=== PATIENT | male | born 1955 | race Caucasian/White ===

== ENCOUNTER 2016-10-10 23:40 | Emergency (ER) | payer BC ==
[~2016-10-10 23:40] MED LIST: ASAB PO; CARDCD180 PO; COZ50 PO; EFFIENT10 PO; FISH-EPA1000 MG PO; FLECAINIDE50 MG PO; FLEX PO; FLONASE NAS; IMDUR30 PO; KLOR-CON M2020 MEQ PO; LIBRAX PO; LIPITOR40 PO; MAGOX4 PO; MOBIC7.5 PO; NEXIUM40 PO; NITROSTAT0.4 MG SL; NORCO1 TA1 PO; NORCO1 TA2 PO; NORCO1 TAB PO; NORV25 PO; NORV5 PO; NTG150 SL; PEP20 PO; PRAVAC PO; TESTOST ENA200 MG/ML IM; V2 PO; VITAMIN D31000 UNIT PO; VITAMIN D400 UNI1 PO; ZOCOR20 PO
[2016-10-11 04:08] LABS: BASOPHILS 0.4 %; BASOPHILS ABSOLUTE 0.03 10/3/uL (0.0-0.16); EOSINOPHILS 1.7 %; EOSINOPHILS ABSOLUTE 0.14 10/3/uL (0.0-0.53); ER CBC TAT 0 Hrs 01 Mins; HEMOGLOBIN 14.1 g/dL (13.6-17.8); IMMATURE GRANULOCYTES 1.7 %; IMMATURE GRANULOCYTES ABSOLUTE 0.14 10/3/uL (0.0-0.11); LYMPHOCYTES 21.8 %; LYMPHOCYTES ABSOLUTE 1.78 10/3/uL (0.67-4.30); MEAN CORPUS HGB CONC 35.7 g/dL (32.0-36.0); MEAN CORPUSCULAR HEMOGLOB 31.9 pg (26.0-34.0); MEAN PLATELET VOLUME 9.3 fL (9.2-13.0); MONOCYTES 10.6 %; MONOCYTES ABSOLUTE 0.87 10/3/uL (0.21-1.20); NEUTROPHILS 63.8 %; NEUTROPHILS ABSOLUTE 5.22 10/3/uL (2.02-8.40); PLATELET COUNT 215 10/3/uL (150-400); RBC DISTRIBUTION WIDTH 14.3 % (12.0-16.0); RED CELL COUNT 4.42 10/6/uL (4.7-6.1); WHITE BLOOD CELLS 8.2 10/3/uL (4.5-10.5)
[2016-10-11 04:09] LABS: HEMATOCRIT 39.5 % (40.0-51.0); MANUAL DIFF NO %; MEAN CORPUSCULAR VOLUME 89.4 fL (80-100)
[2016-10-11 04:16] LABS: INTERNATIONAL NORMAL RATI 1.1 UNITS (-); PROTIME (NOT ORD) 14.2 SEC (12.0-14.5)
[2016-10-11 04:31] LABS: BUN (BLOOD UREA NITROGEN) 20 MG/DL (6-23); CALCIUM, SERUM 8.6 MG/DL (8.5-10.4); CHEST PAIN PROFILE TAT 0 Hrs 24 Mins; CHLORIDE, SERUM 106 MMOL/L (96-112); CO2 (CARBON DIOXIDE) 28 MMOL/L (24-34); CREATININE 1.08 MG/DL (0.70-1.30); GFR AFRICAN AMERICAN 86 ML/MIN (>=60); GFR NON AFRICAN AMERICAN 74 ML/MIN (>=60); GLUCOSE, SERUM 110 MG/DL (60-99); POTASSIUM, SERUM 3.6 MMOL/L (3.5-5.3); SODIUM, SERUM 139 MMOL/L (135-148); TROPONIN I <0.02 NG/ML (<0.05)
== END 2016-10-11 05:46 | disposition home or self-care (01) ==
LOC: ER 23:40
PROVIDERS: Specialist
DX: R00.2 Palpitations (principal); I10 Essential (primary) hypertension; I48.91 Unspecified atrial fibrillation; Z95.5 Presence of coronary angioplasty implant and graft; Z95.0 Presence of cardiac pacemaker; Z90.49 Acquired absence of other specified parts of digestive tract; Z79.82 Long term (current) use of aspirin; Z79.899 Other long term (current) drug therapy
CPT/HCPCS: 71020; 80048; 83735; 84484; 85025; 85610; 85730; 93005; 99285

== ENCOUNTER 2016-10-24 23:31 | Observation (INO) | payer BC ==
--- NOTE | ~2016-10-24 | HP ---
History And Physical [place] [address] [facility] [place] [place]. [address] NAME: ZONIA HALL : 57 STATUS : ADM Shellie PAT#: [id number] AGE: 61 ADM/REG DATE : 10/24/16 MR#: [id number] REPORT SERV DATE: 10/25/16 DICTATED BY: BRIANA TILLEY DATE: 10/25/16 REPORT STATUS : Draft TRANSCRIBED BY: MODL DATE: 10/25/16 DATE OF ADMISSION: 10/24/2016 SENIOR TECHNICAL PROJECT MANAGER: Michael Coburn M.D. CHIEF COMPLAINT: Heart skipping. HISTORY OF PRESENT ILLNESS: A very pleasant 61-year-old white gentleman with known history of CAD, status post STEVE to mid right PDA in January 2016 and with history of PAF, on flecainide, and history of sick sinus syndrome, status post dual-chamber pacemaker in 2006 with a recent upgrade in June 2016. The patient states he has been under considerable stress recently. His daughter who is in [place] was home recently for two weeks. He has not seen her in over two years, and he also reports considerable stress at work as he works for the [employer] with a recent election and a new mayor. The patient states that on 10/24/2016 at midday, he noticed his heart was skipping more frequently. He reports that he is less aware of palpitations with activity and more aware at rest. He describes recent fatigue and lassitude with frequent headaches. The patient states approximately three weeks ago, he was seen at our emergency room for palpitations. He was discharged home and instructed to call the [facility] which he did, and at that time, atenolol 25 mg was added. He states that the addition of atenolol seems to help with palpitations throughout the day, but seemingly wears off mid to late day when he notices more of his palpitations. He also reports transient pain across his chest with the skipped beats. He states that these symptoms are dissimilar to when he had his stent placed in January 2016. His symptoms in January of 2016 were dyspnea. He reports vague descriptions of "pain allover." He reports associated nausea, diaphoresis, dizziness, and belching. He denies any shortness of breath. Again, the chest pain is transient in nature lasting seconds. He reports a recent weight loss of 35 pounds over the last three months. Denies history of myocardial infarction, stroke, DVT, or pulmonary embolus. The patient denies any recent fever or chills. Describes worsening palpitations beginning 10/24/2016. No syncopal episodes. Denies PND or orthopnea. PAST MEDICAL HISTORY: 1. CAD. a. STEVE to mid right PDA in January 2016. b. PAF, on flecainide. c. History of sick sinus syndrome with dual-chamber pacemaker placed in 2006 with recent upgrade in June 2016 to MRI-conditional pacemaker. 2. Hypertension. 3. Denies diabetes. 4. Dyslipidemia. 5. Sleep apnea. Does not use oral splint. 6. GERD. 7. Gastroparesis. 8. Remote tobacco abuse. 9. Positive family history for early CAD. History And Physical [address] [address] NAME: ZONIA HALL : 57 STATUS : ADM Shellie PAT#: [id number] AGE: 61 ADM/REG DATE : 10/24/16 MR#: [id number] REPORT SERV DATE: 10/25/16 DICTATED BY: BRIANA TILLEY DATE: 10/25/16 REPORT STATUS : Draft TRANSCRIBED BY: CHA DATE: 10/25/16 PAST SURGICAL HISTORY: 1. Pacemaker change and upgrade in June 2016. 2. Lumbar fusion. 3. Cholecystectomy. SOCIAL HISTORY: He is with three children. He is employed by the [employer]. He does not have a structured exercise routine. He quit smoking 50 years ago. Denies alcohol or illicits. FAMILY HISTORY: Father at 62 of a heart attack. Two brothers with heart attacks in their 60s, both remain alive. REVIEW OF SYSTEMS: A 14-point review of systems performed, significant for HPI including consumes one to two cups of coffee per day, does not use his oral appliance for sleep apnea, and reports addition of atenolol 25 mg daily three weeks ago for skipped beats. Otherwise, complete review of systems obtained and negative. ALLERGIES: NO KNOWN DRUG ALLERGIES. HOME MEDICATIONS: Aspirin 81 mg daily, atenolol 25 mg daily, atorvastatin 40 mg daily, vitamin D3 2000 units daily, Flexeril p.r.n., Cardizem CD 180 mg daily, Nexium 40 mg twice daily, Pepcid p.r.n., flecainide 50 mg half tablet twice daily, Lorazepam 1 mg twice daily, Cozaar 50 mg daily, magnesium 400 mg three times daily, potassium 20 mEq daily, and Effient 10 mg daily. PHYSICAL EXAMINATION: VITAL SIGNS: Blood pressure 122/75, pulse 60, respirations 12, temperature 98.0, and O2 saturation 94% on room air. Height 5 feet 6 inches, weight 195 pounds, and BMI is 31. GENERAL: Cooperative, in no apparent distress. HEENT: Pupils 2 mm, sclera nonicteric. Nares patent. Moist mucous membranes. No xanthelasma. NECK: Trachea midline, no thyromegaly. No JVD. No bruits. LYMPH: No cervical lymphadenopathy. No supraclavicular lymphadenopathy. RESPIRATORY: Unlabored respirations. Breath sounds clear bilaterally to posterior auscultation. No wheezes or rhonchi. CARDIOVASCULAR: Regular rate. No murmur, rub or gallop appreciated. Extremities without edema. Pulses 2+ bilaterally. ABDOMEN: Soft, nontender, nondistended, normal bowel sounds auscultated throughout. No organomegaly. SKIN: Warm, dry extremities. No pallor, or cyanosis. PSYCHIATRIC: Appropriate affect. Alert, oriented x3. LABORATORY DATA: Troponin less than 0.02, x3. Potassium 3.9, BUN 23, creatinine 1.25, glucose 121, and magnesium 2.2. WBCs 7.2, hemoglobin 14.9, hematocrit 42.2, and platelet count 205,000. EKG: Atrial paced. History And Physical [address] [address] NAME: ZONIA HALL : 57 STATUS : ADM Shellie PAT#: [id number] AGE: 61 ADM/REG DATE : 10/24/16 MR#: [id number] REPORT SERV DATE: 10/25/16 DICTATED BY: BRIANA TILLEY DATE: 10/25/16 REPORT STATUS : Draft TRANSCRIBED BY: CHA DATE: 10/25/16 Echo, 06/2014: EF 55%. Mild diastolic dysfunction. PCI, 01/27/2016 (Dr. Holden): STEVE to mid right PDA. EF 55%. ASSESSMENT AND PLAN: 1. Heart skipping. No ectopy noted on bedside telemetry. Reports addition of beta- benito improving palpitations, but seems to wear off later in the afternoon with increased palpitations at that time. We will have the device interrogated by [facility] staff. Further recommendations forthcoming. We would consider increasing atenolol to twice daily or instruct the patient to take atenolol later in the day with followup in Dr. Coburn in one week as scheduled. 2. Atypical chest pain. Symptoms are dissimilar to previous cardiac event in January 2016, doubt need to pursue further cardiac testing for these transient episodes of chest pain that are atypical and seemed to be related to a palpitations. 3. Coronary artery disease. Continue home medications. 4. Hypertension. Monitor blood pressure. Continue home medications. 5. Dyslipidemia. Continue statin. 6. History of paroxysmal atrial fibrillation, on flecainide. Follow up with Dr. Coburn as previously scheduled. AUNDREA/SHEELAL Briana Tilley, MSN, MILK DRYING MACHINE OPERATOR-BC / [id number] CC: Briana Tilley, CHARIS, MILK DRYING MACHINE OPERATOR-BC MD Michael Edmonds M.D.
[2016-10-25 00:54] LABS: BASOPHILS 0.4 %; BASOPHILS ABSOLUTE 0.03 10/3/uL (0.0-0.16); EOSINOPHILS 1.5 %; EOSINOPHILS ABSOLUTE 0.11 10/3/uL (0.0-0.53); ER CBC TAT 0 Hrs 05 Mins; HEMATOCRIT 42.2 % (40.0-51.0); HEMOGLOBIN 14.9 g/dL (13.6-17.8); IMMATURE GRANULOCYTES 2.1 %; IMMATURE GRANULOCYTES ABSOLUTE 0.15 10/3/uL (0.0-0.11); LYMPHOCYTES 22.3 %; LYMPHOCYTES ABSOLUTE 1.61 10/3/uL (0.67-4.30); MEAN CORPUS HGB CONC 35.3 g/dL (32.0-36.0); MEAN CORPUSCULAR HEMOGLOB 31.9 pg (26.0-34.0); MEAN CORPUSCULAR VOLUME 90.4 fL (80-100); MEAN PLATELET VOLUME 9.5 fL (9.2-13.0); MONOCYTES 10.1 %; MONOCYTES ABSOLUTE 0.73 10/3/uL (0.21-1.20); NEUTROPHILS 63.6 %; NEUTROPHILS ABSOLUTE 4.58 10/3/uL (2.02-8.40); PLATELET COUNT 205 10/3/uL (150-400); RBC DISTRIBUTION WIDTH 14.1 % (12.0-16.0); RED CELL COUNT 4.67 10/6/uL (4.7-6.1); WHITE BLOOD CELLS 7.2 10/3/uL (4.5-10.5)
[2016-10-25 00:58] LABS: MANUAL DIFF NO %
[2016-10-25 01:03] LABS: PROTIME (NOT ORD) 13.3 SEC (12.0-14.5)
[2016-10-25 01:13] LABS: BUN (BLOOD UREA NITROGEN) 23 MG/DL (6-23); CALCIUM, SERUM 8.7 MG/DL (8.5-10.4); CHEST PAIN PROFILE TAT 0 Hrs 24 Mins; CHLORIDE, SERUM 106 MMOL/L (96-112); CO2 (CARBON DIOXIDE) 29 MMOL/L (24-34); CREATININE 1.25 MG/DL (0.70-1.30); GFR AFRICAN AMERICAN 72 ML/MIN (>=60); GFR NON AFRICAN AMERICAN 62 ML/MIN (>=60); GLUCOSE, SERUM 121 MG/DL (60-99); POTASSIUM, SERUM 3.9 MMOL/L (3.5-5.3); SODIUM, SERUM 139 MMOL/L (135-148); TROPONIN I <0.02 NG/ML (<0.05)
[2016-10-25] MEDS ORDERED: NEXIUM40 PO (03:17)
[2016-10-25] MEDS ORDERED: FLECAINIDE50 MG PO (03:17)
[2016-10-25] MEDS ORDERED: MAGOX4 PO (03:18)
[2016-10-25] MEDS ORDERED: ATV1 PO (03:18)
[2016-10-25] MEDS ORDERED: FLEX PO (03:19)
[2016-10-25] MEDS ORDERED: VITAMIN D31000 UNIT PO (03:19)
[2016-10-25] MEDS ORDERED: ATEN25 PO (03:20)
[2016-10-25] MEDS ORDERED: COZ50 PO (03:20)
[2016-10-25] MEDS ORDERED: ASAB PO (03:20)
[2016-10-25] MEDS ORDERED: EFFIENT10 PO (03:21)
[2016-10-25] MEDS ORDERED: KLOR-CON M2020 MEQ PO (03:21)
[2016-10-25] MEDS ORDERED: CARDCD180 PO (03:22)
[2016-10-25] MEDS ORDERED: LIPITOR40 PO (03:22)
[2016-10-25] MEDS ORDERED: PEPCID40 MG PO (03:22)
[2016-10-25 07:38] LABS: TROPONIN I <0.02 NG/ML (<0.05)
[2016-10-25 10:05] LABS: FREE T4 0.96 NG/DL (0.76-1.46)
== END 2016-10-25 12:36 | disposition home or self-care (01) ==
LOC: ER 23:31 → CDU1 23:59 → CDU2 10-25 03:41
PROVIDERS: Clinical Nurse Specialist; Specialist
DX: R00.2 Palpitations (principal); R07.89 Other chest pain; I25.10 Atherosclerotic heart disease of native coronary artery without angina pectoris; I10 Essential (primary) hypertension; E78.5 Hyperlipidemia, unspecified; I48.0 Paroxysmal atrial fibrillation; G47.30 Sleep apnea, unspecified; K21.9 Gastro-esophageal reflux disease without esophagitis; K31.84 Gastroparesis; Z87.891 Personal history of nicotine dependence; Z82.49 Family history of ischemic heart disease and other diseases of the circulatory system; Z98.1 Arthrodesis status; Z90.49 Acquired absence of other specified parts of digestive tract; Z79.82 Long term (current) use of aspirin; Z79.899 Other long term (current) drug therapy; Z98.890 Other specified postprocedural states
CPT/HCPCS: 71020; 80048; 83735; 84439; 84443; 84484; 85025; 85610; 85730; 93005; 93288; 99285; A9270-GY; G0378